=== PATIENT | male | born 1990 | race Hispanic/Latino ===

== ENCOUNTER 2017-12-23 06:32 | Day surgery (SDC) | payer OTHER, SELFPAY ==
[2017-12-19 12:40] VITALS: BMI 25.8
[2017-12-23] VITALS (8 sets, daily range): BP systolic 110–134; BP diastolic 56–88; PULSE 10–91; RESP 8–16; TEMP 36.4–37.2; O2SAT 95–99; BMI 25.4
[2017-12-23] MEDS: LACTATED RINGERS 1,000 ML 42 ML IV (07:20)
--- NOTE | 2017-12-23 07:41 | PM.PREOP ---
Pre-operative Note Interval Note Pre-op Check: History & Physical Reviewed by Physician
[2017-12-23] MEDS: CEFAZOLIN 2 GM/100 ML FROZ.PIGGY IV (07:55)
--- NOTE | 2017-12-23 08:41 | SUR.OPER ---
Supine on padded OR bed, head on pillow, arms secured on padded arm boards at <90 degrees abduction, legs uncrossed, safety belt at waist, tape over blanket over lower non-operable leg.
[2017-12-23] MEDS: BUPIVACAINE 0.25% (PF) 30 ML VIAL INJ (08:54)
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
--- NOTE | 2017-12-23 10:57 | SUR.PHASEI ---
stable pacu to opd.
[2017-12-23] MEDS: OXYCODONE/ACETAMINOPHEN 5/325 TABLET 1 TAB PO (11:10)
--- NOTE | 2017-12-23 11:35 | SUR.PHASEII ---
family and girlfriend in to see pt, all discharge instructions discussed, pt and all voiced an understanding. pt dressed and left when ready and in stable condition, vss, medicated for pain and stated pain tolerable.
== END 2017-12-23 11:40 | disposition home or self-care (01) ==
PROVIDERS: Visit Provider Orthopaedic Surgery
PROC: (CPT 29888; principal; 2017-12-23 07:45)
PROC: (CPT 29870; 2017-12-23 07:45)
DX: S83.242A Other tear of medial meniscus, current injury, left knee, initial encounter (principal); S83.512A Sprain of anterior cruciate ligament of left knee, initial encounter
CPT/HCPCS: 29888; 29881; J0690; J1100; J2250; J2405; J2704; J3010